=== PATIENT | male | born 1985 | race Caucasian/White ===

== ENCOUNTER → 2018-05-28 | Day surgery (SDC) | payer BC ==
[~2018-05-28] VITALS: Ht 177.8 cm; Wt 70.3 kg
[2018-05-28] VITALS (9 sets, daily range): BP systolic 111–120; BP diastolic 60–91
[~2018-05-28] MED LIST: ALPRAZOLAM 0.5 MG TAB ONE; ASPIR 8181 MG PO; BYSTOLIC10 MG PO; DIPHENHYDRAMINE HCL 25 MG CAP ONE; FENTANYL CITRATE/PF 100MCG/2 ML INJ ONE; FLONASE INH; HEPARIN SOD (PORCINE) 1000 UNIT/ML 30ML ONE; HEPARIN SOD/SOD CHLORIDE 2,000 ML ONE; IOPAMIDOL 370 MG/ML 200 ML INFUS..BTL INJ ONE; LIDOCAINE HCL 2% LOCAL 20 ML VIAL ONE; MIDAZOLAM HCL 2 MG/2 ML VIAL ONE; SODIUM CHLORIDE 0.9% 1000ML 1,000 ML ONE; VERAPAMIL HCL 2.5 MG/ML 2 ML VIAL ONE; ZYRTEC10 MG PO
[2018-05-28 16:08] LABS: BASOPHILS % 0.4 % (0.0-1.0); EOSINOPHILS # (AUTO) 0.2 (0.0-0.4); EOSINOPHILS % 2.6 % (0.0-6.0); HEMATOCRIT 49.5 % (38.2-49.6); HEMOGLOBIN 16.9 g/dL (14.0-18.0); LYMPHOCYTES # (AUTO) 1.8 (1.0-3.2); LYMPHOCYTES % 25.4 % (18.0-39.1); MEAN CORPUSCULAR HEMOGLOBIN 29.9 pg (28-32); MEAN CORPUSCULAR HGB CONC 34.1 g/dL (31-35); MEAN CORPUSCULAR VOLUME 87.6 fL (81-99); MONOCYTES # (AUTO) 0.4 (0.2-0.8); MONOCYTES % 5.9 % (4.4-11.3); NEUTROPHILS # (AUTO) 4.5 (2.1-6.9); NEUTROPHILS % 65.4 % (38.7-80.0); PLATELET COUNT 223 x10e3/uL (140-360); RED BLOOD COUNT 5.65 x10e6/uL (4.3-5.7); RED CELL DISTRIBUTION WIDTH 12.6 % (11.7-14.4)
[2018-05-28 16:19] LABS: INR 0.85; PROTHROMBIN TIME 12.4 seconds (11.9-14.5)
[2018-05-28 16:23] LABS: BLOOD UREA NITROGEN 12 mg/dL (7-26); BUN/CREATININE RATIO 14 (6-25); CALCIUM 10.3 mg/dL (8.4-10.2); CARBON DIOXIDE 26 mmol/L (22-29); CHLORIDE 103 mmol/L (98-107); CREATININE, SERUM 0.88 mg/dL (0.72-1.25); EST GLOMERULAR FILTRATION RATE > 60 ML/MIN (60-); GLUCOSE 88 mg/dL (74-118); SODIUM 142 mmol/L (136-145)
--- NOTE | 2018-05-28 17:30 | NUR ---
1730 PM RECEIVED PT OFFSET PRESS ASSISTANT TO #10. Identiferx2 Report from Julieth WEEKS. [facility] clean w/o fix required Dr Keene to [facility]idy office in i week.Rt Tr band to right wrist intact w/o oozing to titrate band off in 60min. at bedside Daniel Back to baseline orientation PEEARL. Resp shallow and regular. Sat 99% Ra, Abd soft and nontender denies necessity to defecate or urinate. Bilateral femoral pulses present . Reviewed plan of care with and pt aware of importance to f/o and adhere to post care instructions. Has copy of instructions.Rt Iv infusing 900cc Ns at 100cchr Site w/o s/s infiltration.
--- NOTE | 2018-05-28 18:10 | NUR ---
AAOX3, VSS. 3ML AIR REMOVED FROM RADIAL BAND. SITE REMAINED C/D/I NO S/S OF BLEEDING OR HEMATOMA. RADIAL PULSES PALPABLE BILATERALLY, BRISK CAP REFILL. DENIED PAIN OR NEEDS AT THIS TIME.
--- NOTE | 2018-05-28 18:25 | NUR ---
AAOX3, VSS. 3ML AIR REMOVED FROM RADIAL BAND TO R WRIST. SITE REMAINED C/D/I NO S/S OF BLEEDING OR HEMATOMA. RADIAL PULSES PALPABLE BILATERALLY, BRISK CAP REFILL. DENIED PAIN OR NEEDS AT THIS TIME.
--- NOTE | 2018-05-28 19:10 | NUR ---
Tr band titration completed and site stable per Deborah Clancy Coban tegderm dressing pulse strong no signs bruises or hematoma or bleeding. 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 Iv removed site w/o s/s infiltration coban dressing intact. Tolerating po intake gluten free cardiac diet.To car per w/c stable vs w/o co CP or SOB. Deborah Bernal crime lab analyst recovery nurse.
--- NOTE | 2018-05-28 19:10 | NUR ---
AAOX3, VSS. 2ML AIR RELEASED AND RADIAL BAND REMOVED FROM R WRIST. SITE REMAINED C/D/I NO S/S OF BLEEDING OR HEMATOMA. STERILE TELFA AND TEGADERM APPLIED TO SITE. RADIAL PULSES PALPABLE BILATERALLY, BRISK CAP REFILL. AMBULATED TO BEDSIDE CHAIR WITHOUT COMPLICATION. IV D/C WITH CATHETER INTACT, HEMOSTASIS OBTAINED, COVERED BY GAUZE AND COBAN. DISCHARGED FROM UNIT BY W/C IN STABLE CONDITION TO POV SPOUSE DRIVING.
--- NOTE | 2018-06-07 17:27 | Operative Report ---
DATE OF PROCEDURE: PROCEDURES PERFORMED 1. Selective coronary angiography x2. 2. Left heart catheterization. PREPROCEDURE DIAGNOSIS: Unstable angina. POSTPROCEDURE DIAGNOSIS: Myocardial bridge. ESTIMATED BLOOD LOSS: Less than 20 mL. SPECIMENS REMOVED: None. PROCEDURE DETAILS: After informed consent was obtained, the patient was brought to the cardiac catheterization laboratory in a fasting and nonsedated state. Bilateral groins were prepped and draped in the usual sterile fashion. Lidocaine 2% was infiltrated over the right anterior wrist for local anesthesia. Using a micropuncture needle, the right radial artery was accessed using modified Seldinger technique and a 6-Slovenian sheath was placed. Next, diagnostic coronary angiography was performed using a TIG catheter, and this catheter was also used to perform the left heart catheterization. The catheter was then subsequently removed over the wire. Hemostasis was achieved via a TR band. Patient tolerated the procedure well with no immediate complications and was transported back to his room in stable condition. PROCEDURAL FINDINGS 1. Left main coronary artery is patent without significant disease. 2. The left anterior descending coronary artery is patent throughout its course. 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 3. The left circumflex coronary artery provides 1 bifurcating obtuse marginal vessel with no significant disease. 4. The right coronary artery is a dominant vessel and provides the posterior descending coronary artery. There is no significant disease present in this coronary system. 5. The left ventricular end-diastolic pressure is normal at 12 mmHg with no aortic valve gradient upon pullback. IMPRESSION AND PLAN: This is a 32-year-old gentleman with significant family history of coronary artery disease, who presented with unstable angina. Diagnostic imaging revealed no significant coronary artery disease with only a mild myocardial bridge. The patient will be managed with beta blockers. Job#: [id number] EV
== END | disposition home or self-care (01) ==
LOC: CATH LAB 14:09
PROVIDERS: ATTEND Internal Medicine Cardiovascular Disease
DX: Q24.5 Malformation of coronary vessels (principal); I10 Essential (primary) hypertension; E78.00 Pure hypercholesterolemia, unspecified; R01.1 Cardiac murmur, unspecified; J45.909 Unspecified asthma, uncomplicated; Z79.82 Long term (current) use of aspirin; Z91.018 Allergy to other foods
CPT/HCPCS: 36415; 80048; 85025; 85610; 93458; J1644; J2001; J2250; J7030; Q9967